=== PATIENT | female | born 1950 | race Caucasian/White ===

== ENCOUNTER → 2017-01-04 12:48 | Outpatient (CLI) | payer MEDICARE, BC | END | disposition home or self-care (01) | LOC: D.MRI 12:00 | DX: M17.12 Unilateral primary osteoarthritis, left knee (principal); M25.562 Pain in left knee ==

== ENCOUNTER 2017-03-18 21:03 | Emergency (ER) | payer MEDICARE, BC ==
[2017-03-18 22:45] LABS: APPEARANCE CLEAR (CLEAR); COLOR YELLOW (YELLOW)
[2017-03-18 22:46] LABS: BILIRUBIN NEGATIVE (NEGATIVE); GLUCOSE NEGATIVE (NEGATIVE); KETONE NEGATIVE (NEGATIVE); PROTEIN NEGATIVE (NEGATIVE); UROBILINOGEN NORMAL (NORMAL)
[2017-03-18 22:52] LABS: WHITE CELLS - URINE 0-5 /hpf (0-5)
[2017-03-18 22:54] LABS: BACTERIA FEW /hpf (NONE SEEN); EPITHELIAL CELLS OCC /hpf (0-5); LEUKOCYTE ESTERASE TRACE (NEGATIVE); NITRITE NEGATIVE (NEGATIVE)
== END 2017-03-18 23:15 | disposition home or self-care (01) ==
LOC: D.ER 21:03
PROVIDERS: Emergency Medicine
DX: N39.0 Urinary tract infection, site not specified (principal)

== ENCOUNTER 2017-06-11 23:26 | Emergency (ER) | payer MEDICARE, BC ==
[2017-06-12 00:38] LABS: BASOPHILS 0.4 % (0-2); EOSINOPHILS 5.2 % (0-7); HEMATOCRIT 35.8 % (36.0-48.0); HEMOGLOBIN 11.2 g/dL (12-16); IMMATURE GRANULOCYTES 0.2 % (0-5); LYMPHOCYTES 13.9 % (15-50); MCH 26.7 pg (26.0-34.0); MCHC 31.3 g/dL (31.0-37.0); MCV 85.2 fL (80.0-100.0); MONOCYTES 6.4 % (2-11); NEUTROPHILS 73.9 % (40-80); PLATELET COUNT 325 10x3/uL (130-400); RDW 15.4 % (11.5-14.5); WBC 8.2 10x3/uL (4.8-10.8)
[2017-06-12 00:42] LABS: CALC OSMOLALITY 275 mosm/kg (275-300); CARBON DIOXIDE 28.9 mmol/L (21.0-32.0); CHLORIDE - SERUM 101 mmol/L (98-107); CREATININE - SERUM 0.7 mg/dL (0.6-1.3); GLUCOSE 113 mg/dL (74-106); POTASSIUM - SERUM 4.4 mmol/L (3.5-5.1); SODIUM 138 mmol/L (136-145); UREA NITROGEN 11 mg/dL (7-18); eGFR NON AFRICAN AMERICAN 88 mL/min (90-120)
== END 2017-06-12 01:17 | disposition home or self-care (01) ==
LOC: D.ER 23:26
PROVIDERS: Family Medicine
DX: T50.905A Adverse effect of unspecified drugs, medicaments and biological substances, initial encounter (principal); Y92.029 Unspecified place in mobile home as the place of occurrence of the external cause; L50.9 Urticaria, unspecified

== ENCOUNTER → 2018-02-12 17:19 | Outpatient (CLI) | payer MEDICARE, BC | END | disposition home or self-care (01) | LOC: D.MAMMO 15:45 | DX: Z12.31 Encounter for screening mammogram for malignant neoplasm of breast (principal) ==

== ENCOUNTER 2019-10-19 13:09 | Inpatient (IN) | payer MEDICARE, BC ==
[~2019-10-19] VITALS: Ht 157.5 cm; Wt 82.6 kg
--- NOTE | 2019-10-19 14:01 | NUR ---
22RFA X2 STICKS PLACED BY STUDENT/INSTRUCTURE
[2019-10-19] MEDS ORDERED: CELEBREX200 MG PO (14:42)
[2019-10-19] MEDS ORDERED: CATAPRES0.1 MG PO (14:43)
[2019-10-19] MEDS ORDERED: ALBUTEROL SULF8.5 GM INH (14:43)
[2019-10-19 14:44] LABS: BASOPHILS 0.6 % (0-2); EOSINOPHILS 8.2 % (0-7); HEMATOCRIT 34.7 % (36.0-48.0); HEMOGLOBIN 10.7 g/dL (12-16); IMMATURE GRANULOCYTES 0.2 % (0-5); MCHC 30.8 g/dL (31.0-37.0); MCV 81.1 fL (80.0-100.0); MEAN PLATELET VOLUME 9.1 fL (7.4-10.4); MONOCYTES 6.5 % (2-11); NEUTROPHILS 74.5 % (40-80); PLATELET COUNT 323 10x3/uL (130-400); RBC 4.28 10x6/uL (4.00-5.40); RDW 15.1 % (11.5-14.5); WBC 8.6 10x3/uL (4.8-10.8)
[2019-10-19] MEDS ORDERED: CIMETIDINE800 MG PO (14:44)
[2019-10-19] MEDS ORDERED: REGLAN10 MG (14:44)
[2019-10-19] MEDS ORDERED: BISOPROLOL FUMAR5 MG PO (14:45)
[2019-10-19] MEDS ORDERED: NEXIUM20 MG PO (14:46)
[2019-10-19 14:56] LABS: INR 0.97 (0.85-1.17); PROTIME 12.9 SECONDS (11.6-15.0)
[2019-10-19 15:06] LABS: CALC OSMOLALITY 272 mosm/kg (275-300); CALCIUM 9.3 mg/dL (8.5-10.1); CARBON DIOXIDE 27.1 mmol/L (21.0-32.0); CHLORIDE - SERUM 101 mmol/L (98-107); CREATININE - SERUM 0.7 mg/dL (0.6-1.3); GLUCOSE 101 mg/dL (74-106); POTASSIUM - SERUM 4.3 mmol/L (3.5-5.1); SODIUM 137 mmol/L (136-145); UREA NITROGEN 9 mg/dL (7-18); eGFR NON AFRICAN AMERICAN 87 mL/min (90-120)
[2019-10-19 15:12] LABS: ALKALINE PHOSPHATASE 104 U/L (30-120); ALT (SGPT) 18 U/L (10-68); BILIRUBIN - TOTAL 0.33 mg/dL (0.2-1.3); PROTEIN - SERUM 6.9 g/dL (6.4-8.2)
[2019-10-19 16:46] VITALS: BP 170/100
[2019-10-19 18:25] LABS: APPEARANCE CLEAR (CLEAR); BILIRUBIN NEGATIVE (NEGATIVE); COLOR YELLOW (YELLOW); GLUCOSE NEGATIVE (NEGATIVE); KETONE NEGATIVE (NEGATIVE); NITRITE NEGATIVE (NEGATIVE); PROTEIN NEGATIVE (NEGATIVE); UROBILINOGEN NORMAL (NORMAL)
[2019-10-19 18:26] LABS: BACTERIA MODERATE /hpf (NEGATIVE); EPITHELIAL CELLS 0-5 /hpf (0-5); RED CELLS - URINE OCC /hpf (0-5)
--- NOTE | 2019-10-19 19:11 | NUR ---
SPOKE WITH NURSE PRACTITINER AND EXPECT NEW ORDERS PT STATES NO NEEDS AT THIS TIME ASSISTED WITH COMFORT AND EXPLAINED A FEW QUESTIONS BED IS LOW AND LOCKED AND CALL LIGHT WITH PT
[2019-10-19 20:07] LABS: APTT 29.3 SECONDS (22.8-39.4)
[2019-10-19 20:08] LABS: D-DIMER-QUANTITATIVE 0.63 ug/mLFEU (0.20-0.54)
[2019-10-19 20:23] VITALS: BP 171/59
[2019-10-19 20:34] LABS: MAGNESIUM - SERUM 1.7 mg/dL (1.8-2.4)
[2019-10-19 22:38] LABS: % SATURATION 9 % (15-55); IRON 40 ug/dl (35-150); TOTAL IRON BIND CAPACITY 443 ug/dl (260-445); UNSAT IRON BIND CAPACITY 403 ug/dl (150-375)
[2019-10-20 00:11] VITALS: BP 152/61
--- NOTE | 2019-10-20 04:21 | NUR ---
I have reviewed this patient and I concur with the Shift Assessment completed by the Licensed Practical Nurse today this shift.
[2019-10-20 05:03] VITALS: BP 144/66
[2019-10-20 05:48] LABS: BASOPHILS 0.5 % (0-2); HEMATOCRIT 33.1 % (36.0-48.0); HEMOGLOBIN 10.3 g/dL (12-16); IMMATURE GRANULOCYTES 0.3 % (0-5); LYMPHOCYTES 12.8 % (15-50); MCH 25.2 pg (26.0-34.0); MCHC 31.1 g/dL (31.0-37.0); MCV 80.9 fL (80.0-100.0); MEAN PLATELET VOLUME 9.3 fL (7.4-10.4); MONOCYTES 7.9 % (2-11); NEUTROPHILS 68.5 % (40-80); PLATELET COUNT 322 10x3/uL (130-400); RBC 4.09 10x6/uL (4.00-5.40); RDW 15.1 % (11.5-14.5)
[2019-10-20 06:00] LABS: ALKALINE PHOSPHATASE 98 U/L (30-120); ALT (SGPT) 15 U/L (10-68); BILIRUBIN - TOTAL 0.26 mg/dL (0.2-1.3); CALC OSMOLALITY 271 mosm/kg (275-300); CARBON DIOXIDE 27.7 mmol/L (21.0-32.0); CHLORIDE - SERUM 101 mmol/L (98-107); CREATININE - SERUM 0.8 mg/dL (0.6-1.3); GLUCOSE 105 mg/dL (74-106); MAGNESIUM - SERUM 1.6 mg/dL (1.8-2.4); PROTEIN - SERUM 6.2 g/dL (6.4-8.2); SODIUM 137 mmol/L (136-145); UREA NITROGEN 7 mg/dL (7-18); eGFR NON AFRICAN AMERICAN 75 mL/min (90-120)
--- NOTE | 2019-10-20 07:29 | NUR ---
PT SITTING ON SIDE ON BED. RECEIVING BREATHING TREATMENT. PT STATES SHE HAS NO FURTHER NEEDS AT THIS TIME. BED LOW. CL IN REACH. WILL CONTINUE WITH POC.
[2019-10-20 08:00] VITALS: BP 185/63
--- NOTE | 2019-10-20 09:29 | NUR ---
PT STATES SHE FEELS NAUSEA AND IS SHAKING BUT STATES SHE DOES NOT KNOW WHY. ASKED PT IF SHE WANTED ZOFRAN AND SHE STATES XOFRAN DOESN'T WORK ADN DR. WEBB GIVES HER PHENEGRAN. I STATED I WOULD GO CALL THE DOCTOR. PT VERBALIZED UNDERSTANDING. PAGED REBEKAH TEMPLE.
--- NOTE | 2019-10-20 09:33 | NUR ---
SPOKE WITH REBEKAH TEMPLE AND SHE STATES TO ORDER 25MG PO OF PHENEGRAN.
[2019-10-20 12:00] VITALS: BP 183/69
--- NOTE | 2019-10-20 13:58 | NUR ---
1190-PER THIS NURSE AND ANTELMO KIDD TOTAL OF 3 STICKS WITH 20 G FOR SALINE LOCK FOR CT. I CALLED [facility] IN RADIOLOGY TO LET HER KNOW THAT PATIENT HAS THE IV IN NOW. LEFT THE 22 G. IN.
--- NOTE | 2019-10-20 14:37 | NUR ---
PT WANTING EXCEDRIN FOR HEADACHE. PAGED REBEKAH TEMPLE.
--- NOTE | 2019-10-20 14:42 | NUR ---
REBEKAH TEMPLE STATES TO ORDER EXCEDRIN.
--- NOTE | 2019-10-20 14:47 | NUR ---
UNABLE TO PULL DOXYCLINCE AT THIS TIME BECAUSE THEY ARE WORKING ON PCU PYXIS.
--- NOTE | 2019-10-20 15:00 | NUR ---
RIGHT FA 20G IV INSERTED IN LEFT FA. CT AWARE THAT IV WAS STARTED.
[2019-10-20 16:00] VITALS: BP 157/73
--- NOTE | 2019-10-20 16:40 | NUR ---
SPOKE WITH SHANTHI FROM PHARMACY AND SHE STATES SHE WILL BRING DOXYCLINCE AND RETIME MED.
--- NOTE | 2019-10-20 16:54 | NUR ---
PT WANTING SOMETHING TO HELP HER SLEEP TONIGHT. PAGED REBEKAH TEMPLE.
--- NOTE | 2019-10-20 16:58 | NUR ---
SPOKE WITH REBEKAH TEMPLE AND SHE STATES TO ORDER MELATONIN 5MG PO QHS. I VERBALIZED UNDERSTANDING.
--- NOTE | 2019-10-20 18:18 | NUR ---
pharmacy still has not brought iv iron.
[2019-10-20 18:35] VITALS: BMI 33.0
--- NOTE | 2019-10-20 19:14 | NUR ---
SITTING UP ON BEDSIDE AND DENIES ANY NEEDS AT THIS TIME BED LOW AND LOCKED AND PT HAS CALL LIGHT
[2019-10-20 20:50] VITALS: BP 176/70
[2019-10-21 00:09] VITALS: BP 128/44
--- NOTE | 2019-10-21 03:31 | NUR ---
I have reviewed this patient and I concur with the Shift Assessment completed by the Licensed Practical Nurse today this shift.
[2019-10-21 06:08] LABS: ALBUMIN 2.7 g/dL (3.4-5.0); ALKALINE PHOSPHATASE 90 U/L (30-120); ALT (SGPT) 16 U/L (10-68); BILIRUBIN - TOTAL 0.26 mg/dL (0.2-1.3); CALC OSMOLALITY 278 mosm/kg (275-300); CALCIUM 8.9 mg/dL (8.5-10.1); CARBON DIOXIDE 27.3 mmol/L (21.0-32.0); CHLORIDE - SERUM 101 mmol/L (98-107); CREATININE - SERUM 0.8 mg/dL (0.6-1.3); GLUCOSE 135 mg/dL (74-106); MAGNESIUM - SERUM 1.6 mg/dL (1.8-2.4); POTASSIUM - SERUM 3.9 mmol/L (3.5-5.1); PROTEIN - SERUM 5.8 g/dL (6.4-8.2); SODIUM 139 mmol/L (136-145); eGFR NON AFRICAN AMERICAN 75 mL/min (90-120)
[2019-10-21 06:11] LABS: UREA NITROGEN 9 mg/dL (7-18)
[2019-10-21 06:24] VITALS: BP 172/80
[2019-10-21 06:49] LABS: BASOPHILS 0.6 % (0-2); EOSINOPHILS 10.7 % (0-7); HEMATOCRIT 32.1 % (36.0-48.0); HEMOGLOBIN 9.7 g/dL (12-16); IMMATURE GRANULOCYTES 0.4 % (0-5); LYMPHOCYTES 12.2 % (15-50); MCH 24.8 pg (26.0-34.0); MCHC 30.2 g/dL (31.0-37.0); MCV 82.1 fL (80.0-100.0); MEAN PLATELET VOLUME 9.5 fL (7.4-10.4); MONOCYTES 9.3 % (2-11); NEUTROPHILS 66.8 % (40-80); PLATELET COUNT 316 10x3/uL (130-400); RBC 3.91 10x6/uL (4.00-5.40); RDW 15.3 % (11.5-14.5); WBC 7.9 10x3/uL (4.8-10.8)
[2019-10-21 09:32] VITALS: BP 139/57
[2019-10-21 13:37] VITALS: BP 188/86
--- NOTE | 2019-10-21 14:54 | NUR ---
PT RESTING COMFORTABLY, SITTING UP TO SIDE OF BED, DENIES ANY NEEDS AT THIS TIME. CALL LIGHT IN REACH, NAD NOTED,W ILL CONTINUE TO MONITOR.
[2019-10-21 16:00] VITALS: BP 176/62
--- NOTE | 2019-10-21 16:04 | NUR ---
PT D/O DIARRHEA, WANTS TO KNOW IF SHE CAN HAVE SOMETHING FOR IT, PAGED REBEKAH HIGGINS APRN, [employer] OPERATOR BACK.
--- NOTE | 2019-10-21 19:37 | NUR ---
INFORMED PT OF NEED FOR STOOL SAMPLE BEFORE SHE CAN GET SOMETHING FOR DIARRHEA, PROVIDED PT WITH COLLECTION CONTAINER.
--- NOTE | 2019-10-21 19:50 | NUR ---
SITTING UP ON SIDE OF BED AWAKE ALERT AND ORIENTED x4 NO SIGNS OR SYMPTOMS OF DISTRESS NOTED. RESPIRATIONS EVEN AND UNLABORED. FAMILY AT BEDSIDE. CALL LIGHT WITH IN REACH AND BED IS IN LOWEST POSITION. WILL CONTINUE TO MONITOR
[2019-10-21 21:33] VITALS: BP 150/68
[2019-10-22] VITALS: BP 188/79
--- NOTE | 2019-10-22 02:46 | NUR ---
PT RESTING IN BED QUEITLY WITH EYES CLOSED. NO SIGNS OR SYMPTOMS OF DISTRESS NOTED. RESPIRATIONS EVEN AND UNLABORED. NO COMPLAINTS OF PAIN AT THIS TIME. IV RIGHT FOREARM SALINE LOCKED. CONTINENT OF BOWELL AND BLADDER. BOWELL SOUNDS ACTIVE x4. LAST BOWELL MOVEMNET 10/21/19. STOOL COLLECTION COLLECTED. IMODIUM GIVEN FOR DIARRHEA. PT TOLERATED WELL. TELEMETREY 102 SINUS TACH. PT ALERT AND ORIENTED x4. CALL LIGHT WITH IN REACH AND BED IS IN LOWEST POSITION. PT ENOURAGED TO CALL FOR HELP WHEN NEEDED. WILL CONTINUE TO MONITOR.
[2019-10-22 04:00] VITALS: BP 167/75
[2019-10-22 05:38] LABS: BASOPHILS 0.4 % (0-2); EOSINOPHILS 10.8 % (0-7); HEMATOCRIT 33.3 % (36.0-48.0); HEMOGLOBIN 10.2 g/dL (12-16); IMMATURE GRANULOCYTES 0.3 % (0-5); MCH 25.1 pg (26.0-34.0); MCHC 30.6 g/dL (31.0-37.0); MCV 81.8 fL (80.0-100.0); MEAN PLATELET VOLUME 9.3 fL (7.4-10.4); MONOCYTES 8.5 % (2-11); PLATELET COUNT 305 10x3/uL (130-400); RBC 4.07 10x6/uL (4.00-5.40); RDW 15.4 % (11.5-14.5); WBC 9.2 10x3/uL (4.8-10.8)
[2019-10-22 06:04] LABS: ALBUMIN 2.7 g/dL (3.4-5.0); ALKALINE PHOSPHATASE 92 U/L (30-120); ALT (SGPT) 13 U/L (10-68); BILIRUBIN - TOTAL 0.33 mg/dL (0.2-1.3); CALC OSMOLALITY 272 mosm/kg (275-300); CARBON DIOXIDE 26.3 mmol/L (21.0-32.0); CHLORIDE - SERUM 99 mmol/L (98-107); CREATININE - SERUM 0.8 mg/dL (0.6-1.3); GLUCOSE 130 mg/dL (74-106); MAGNESIUM - SERUM 1.5 mg/dL (1.8-2.4); POTASSIUM - SERUM 3.5 mmol/L (3.5-5.1); PROTEIN - SERUM 6.4 g/dL (6.4-8.2); SODIUM 136 mmol/L (136-145); UREA NITROGEN 11 mg/dL (7-18); eGFR NON AFRICAN AMERICAN 75 mL/min (90-120)
--- NOTE | 2019-10-22 06:41 | NUR ---
PRN MAGNISSUM GIVEN FOR 1.5 MAG LEVEL. WILL CONTINUE TO MONITOR
[2019-10-22 08:25] LABS: APPEARANCE HAZY (CLEAR); BILIRUBIN NEGATIVE (NEGATIVE); COLOR YELLOW (YELLOW); GLUCOSE NEGATIVE (NEGATIVE); KETONE NEGATIVE (NEGATIVE); NITRITE NEGATIVE (NEGATIVE); PROTEIN NEGATIVE (NEGATIVE); UROBILINOGEN NORMAL (NORMAL)
[2019-10-22 09:09] VITALS: BP 183/66
[2019-10-22 12:34] VITALS: BP 156/60
--- NOTE | 2019-10-22 13:32 | NUR ---
I have reviewed this patient and I concur with the Shift Assessment completed by the Licensed Practical Nurse today this shift.
[2019-10-22 16:45] VITALS: BP 152/77
--- NOTE | 2019-10-22 19:45 | NUR ---
PT SITTING UP ON SIDE OF BED. NO SIGNS OR SYMPTOMS OF DISTRESS NOTED. RESPIRATIONS EVEN AND UNLABORED. CALL LIGHT WITH IN REACH AND BED IS IN THE LOWEST POSITION. WILL CONTINUE TO MONITOR
[2019-10-22 20:00] VITALS: BP 169/70
[2019-10-23] VITALS: BP 149/70
[2019-10-23 04:00] VITALS: BP 168/78
--- NOTE | 2019-10-23 04:06 | NUR ---
PT SITTING UP ON SIDE OF BED NO SIGNS OR SYMPTOMS OF DISTRESS NOTED. RESPIRATIONS EVEN AND UNLABORED. CONTINENT OF BOWELL AND BLADDER. PT STATES LAST BOWELL MOVEMENT WAS 10/22/19. PT COMPLAINS OF FEELING THE URGE TO URINATE. 650CC EMPTIED FROM URINE HAT. BLADDER SCAN PERFORMED. 325CC OF URINE STILL IN BLADDER. WILL CONTINUE TO MONITOR. PT ENCOURAGED TO CALL FOR HELP WHEN GETTING IN AND OUT OF BED. IV LOCATED TO RIGHT AC SALINE LOCKED. CALL LIGHT WITH IN REACH AND BED IS IN LOWEST POSITION. WILL CONTINUE TO MONITOR
--- NOTE | 2019-10-23 05:09 | NUR ---
PRN PAIN MEDICATION GIVEN FOR HEADACHE. PRN NEUSEA MEDICATION GIVEN. CALL LIGHT WITH IN REACH AND BED IS IN LOWEST POSITION. WILLCONTINUE TO MONITOR.
[2019-10-23 06:07] LABS: BASOPHILS 0.2 % (0-2); EOSINOPHILS 0.1 % (0-7); HEMATOCRIT 36.5 % (36.0-48.0); HEMOGLOBIN 11.3 g/dL (12-16); IMMATURE GRANULOCYTES 0.4 % (0-5); LYMPHOCYTES 6.1 % (15-50); MCH 25.1 pg (26.0-34.0); MCV 81.1 fL (80.0-100.0); MEAN PLATELET VOLUME 9.8 fL (7.4-10.4); MONOCYTES 2.2 % (2-11); WBC 10.9 10x3/uL (4.8-10.8)
--- NOTE | 2019-10-23 06:08 | NUR ---
PRN HYDRALAZINE GIVEN FOR 197/95 BLOOD PRESSURE. PT ENCOURAGED TO CALL FOR HELP WHEN NEEDED. CALL LIGHT WITH IN REACH. AND BED IS IN LOWEST POSITON. WILL CONTINUE TO MONITOR.
[2019-10-23 06:16] LABS: PLATELET COUNT 390 10x3/uL (130-400)
[2019-10-23 06:31] LABS: ALBUMIN 3.3 g/dL (3.4-5.0); BILIRUBIN - TOTAL 0.32 mg/dL (0.2-1.3); CALCIUM 9.7 mg/dL (8.5-10.1); CARBON DIOXIDE 24.1 mmol/L (21.0-32.0); CREATININE - SERUM 0.9 mg/dL (0.6-1.3); MAGNESIUM - SERUM 1.6 mg/dL (1.8-2.4); PROTEIN - SERUM 7.8 g/dL (6.4-8.2)
[2019-10-23 06:36] LABS: ANION GAP 16.6 mmol/L (8-16); POTASSIUM - SERUM 4.7 mmol/L (3.5-5.1)
--- NOTE | 2019-10-23 07:34 | NUR ---
REPORT RECEIVED FROM FINISHER SCREWDOWN AND PATIENT CARE ASSUMED. PATIENT LAYING IN BED AWAKE, ALERT AND ORIENTED X 4. PATIENT COMPLAINS OF NAUSEA . PATIENT HAD PHENERGAN EARLIER AND DID NOT HELP. PATIENT BP 202/94. WILL MEDICATE WITH CLONODINE AND RECHECK.
[2019-10-23 10:20] VITALS: BP 195/90
--- NOTE | 2019-10-23 11:13 | NUR ---
PATIENT STABLE AND UNCHANGED. PATIENT HAD STOOL SPECIMEN TURNED IN YESTERDAY AND DID NOT MEET CRITIERIA FOR TESTING. PATIENT HAVING NON PRODUCTIVE COUGH.
[2019-10-23 13:49] VITALS: BP 142/66
--- NOTE | 2019-10-23 14:02 | NUR ---
NO TX DONE PT HAVING ECHO OF HEART
[2019-10-23 14:30] VITALS: Ht 157.5 cm; Wt 82.6 kg
--- NOTE | 2019-10-23 15:10 | NUR ---
PATIENT IS STABLE AND UNCHANGED. PATIENT SITTING UP AT BS VISITNG WITH FAMILY. PATIENT DENIES ANY NEEDS OR PAIN. WILL CONTINUE TO MONITOR.
[2019-10-23 16:26] VITALS: BP 169/74
[2019-10-23] MEDS ORDERED: FLAGYL500 MG PO (16:48)
[2019-10-23] MEDS ORDERED: VIBRAMYCIN 100100 MG PO (16:50)
[2019-10-23] MEDS ORDERED: KLOR-CON 1010 MEQ PO (16:51)
[2019-10-23] MEDS ORDERED: FUROSEMIDE20 MG PO (16:51)
--- NOTE | 2019-10-23 18:20 | NUR ---
PATIENT IS STABLE AND VSS. PATIENT DENIES ANY NEEDS OR PAIN. ORDERS RECEIVED FOR DC. WRITTEN AND VERBAL INSTRUCTIONS GIVEN TO PATIENT.PATIENT SIGNED DC INSTUCTIONS . PATIEN TO FRONT DOOR VIA WC ACCOMAPNIED BY [facility].
--- NOTE | 2019-10-26 11:54 | EC ---
PATIENT:SUSAN LEE DATE OF SERVICE: 10/19/19 SEX: F MEDICAL RECORD: [id number] DATE OF : [birth year] LOCATION:D. D.212 AGE OF PATIENT: 69 ADMISSION DATE: 10/19/19 REFERRING PHYSICIAN: INTERPRETING PHYSICIAN: CHAR HASSAN MD ECHOCARDIOGRAM REPORT ECHO CHARGES 5 ECHO LIMITED Date: 10/23/19 CLINICAL DIAGNOSIS: DYSPNEA ON EXERTION ECHOCARDIOGRAPHIC MEASUREMENTS (adult normal given) AC root (d.<3.7cm) 0 cm LV Septum d (<1.2 cm> 0 cm Valve Excursion 0 cm LV Septum (systole) 0 cm Left Atria (s.<4.0cm> 0 cm LVPW d(<1.2cm) 0 cm RV (d.<2.3cm) 0 cm LVPW (sytole) 0 cm LV diastole(<5.6CM) 0 cm MV E-F(>70mm/sec) 0 cm LV systole 0 cm LVOT Diameter 0 cm MV exc.(>10mm) 0 cm Est.ejection fraction (50-75%) 0 % DOPPLER: LVIT cm/sec A 0 cm/sec E cm/sec LA 0 cm/sec RVSP 32.2 mmHg LVOT 0 cm/sec AOP1/2T m/s Asc. Ao 0 cm/sec RVOT 0 cm/sec RA 0 cm/sec PA 0 cm/sec AV Gradient Peak 0 mmHg AV Mean 0 mmHg AV Area 0 cm MV Gradient Peak 0 mmHg MV Mean 0 mmHg MV Area 0 cm COMMENTS: Promotion Specialist: Tri [facility] Tobacco Sieve Operator: 1 Dr. Hassan TAPE# PACS Pericardial Effusion N DATE OF SERVICE: FINDINGS: 1. Left ventricular chamber size is within normal limits. Left ventricular systolic function is normal. Overall ejection fraction estimated at 55% to 60%. 2. Left atrium, right atrium, and right ventricular chamber sizes are within normal limits. 3. Valvular structures have normal structure and motion. 4. Doppler interrogation only reveals mild mitral regurgitation, no other valvular insufficiency or stenosis. Pulmonary systolic pressure estimated at 32 ECHOCARDIOGRAM REPORT [id number] SUSAN LEE mmHg. 5. No evidence of pericardial effusion or left ventricular thrombus. TRANSINT:[id number] Voice Confirmation ID: [id number] DOCUMENT ID: [id number] CHAR HASSAN MD at 1154 CC: [id number] DICTATION DATE: 10/23/19 1445 COMPUTATIONAL CHEMIST: 10/24/19 0013 DIS IN 10/23/19 [id number] [place] [address]
== END 2019-10-23 18:23 | disposition home or self-care (01) | DRG 177 ==
LOC: D.M2 13:09
PROVIDERS: ADMIT Family Medicine; ATTEND Family Medicine
DX: J69.0 Pneumonitis due to inhalation of food and vomit (principal); I50.31 Acute diastolic (congestive) heart failure; I16.1 Hypertensive emergency; N39.0 Urinary tract infection, site not specified; J45.901 Unspecified asthma with (acute) exacerbation; D50.9 Iron deficiency anemia, unspecified; K21.9 Gastro-esophageal reflux disease without esophagitis; E83.42 Hypomagnesemia; M19.90 Unspecified osteoarthritis, unspecified site; I11.0 Hypertensive heart disease with heart failure

== ENCOUNTER → 2020-02-09 12:59 | Outpatient (CLI) | payer MEDICARE, BC ==
[2019-10-23 14:30] VITALS: BMI 33.3
[~2020-02-09 12:59] MED LIST: ALBUTEROL SULF8.5 GM INH; BISOPROLOL FUMAR5 MG PO; CATAPRES0.1 MG PO; CELEBREX200 MG PO; CIMETIDINE800 MG PO; FLAGYL500 MG PO; FUROSEMIDE20 MG PO; KLOR-CON 1010 MEQ PO; NEXIUM20 MG PO; REGLAN10 MG; VIBRAMYCIN 100100 MG PO
--- NOTE | 2020-02-09 15:10 | NUR ---
PT CONSENTED FOR A LUMBAR MYELOGRAM WITH CT. TIME OUT PERFORMED 1445 BY JD WYLIE(R) AND DR CRUZ
== END | disposition home or self-care (01) ==
LOC: D.CT 02-08 13:30 → D.RAD 13:30
PROVIDERS: ATTEND Family Medicine
DX: M54.17 Radiculopathy, lumbosacral region (principal)

== ENCOUNTER 2020-02-21 07:18 | Emergency (ER) | payer MEDICARE, BC ==
[~2020-02-21] VITALS: Ht 157.5 cm; Wt 82.7 kg
[2020-02-21 07:27] VITALS: Ht 157.5 cm; Wt 82.7 kg
[2020-02-21] MEDS ORDERED: CATAPRES0.2 MG PO (07:31)
[2020-02-21] MEDS ORDERED: PREMARIN1.25 MG PO (07:31)
[2020-02-21] MEDS ORDERED: SINGULAIR10 MG PO (07:32)
[2020-02-21] MEDS ORDERED: VITAMIN D3 (07:32)
[2020-02-21] MEDS ORDERED: CLARITIN 10 MG10 MG PO (07:33)
[2020-02-21] MEDS ORDERED: VENTOLIN HFA [SP8 GM (07:34)
[2020-02-21] MEDS ORDERED: SYMBICORT 16010.2 GM (07:34)
[2020-02-21] MEDS ORDERED: ATROVENT 0.02%2.5 ML (07:34)
[2020-02-21] MEDS ORDERED: LEVOFLOXACIN500 MG (07:35)
[2020-02-21] MEDS ORDERED: IPRATROPIUM BRO30 M1 (07:35)
[2020-02-21] MEDS ORDERED: [UNRECOGNIZED DRUG - OTHER] (07:36)
[2020-02-21 07:40] LABS: HEMATOCRIT 38.5 % (36.0-48.0); HEMOGLOBIN 11.5 g/dL (12-16); LYMPHOCYTES 10.1 % (15-50); MCHC 29.9 g/dL (31.0-37.0); MCV 83.7 fL (80.0-100.0); MEAN PLATELET VOLUME 9.1 fL (7.4-10.4); NEUTROPHILS 82.9 % (40-80); PLATELET COUNT 332 10x3/uL (130-400); RDW 13.6 % (11.5-14.5); WBC 8.9 10x3/uL (4.8-10.8)
[2020-02-21] MEDS ORDERED: [UNRECOGNIZED DRUG - OTHER] (07:41)
[2020-02-21] MEDS ORDERED: LASIX (07:41)
[2020-02-21 07:45] LABS: APTT 29.4 SECONDS (22.8-39.4); CALC OSMOLALITY 270 mosm/kg (275-300); CALCIUM 9.3 mg/dL (8.5-10.1); CARBON DIOXIDE 27.7 mmol/L (21.0-32.0); CHLORIDE - SERUM 99 mmol/L (98-107); CREATININE - SERUM 0.9 mg/dL (0.6-1.3); GLUCOSE 120 mg/dL (74-106); INR 0.97 (0.85-1.17); POTASSIUM - SERUM 4.2 mmol/L (3.5-5.1); PROTIME 12.8 SECONDS (11.6-15.0); SODIUM 135 mmol/L (136-145); UREA NITROGEN 13 mg/dL (7-18); eGFR NON AFRICAN AMERICAN 65 mL/min (90-120)
[2020-02-21 08:01] LABS: ALKALINE PHOSPHATASE 98 U/L (30-120); ALT (SGPT) 15 U/L (10-68); BILIRUBIN - TOTAL 0.18 mg/dL (0.2-1.3); CKMB 0.9 U/L (0.0-3.6); CREATINE KINASE 42 UL (21-215); PRO BNP 631 pg/mL (0-125); PROTEIN - SERUM 6.8 g/dL (6.4-8.2); TROPONIN-I < 0.017 ng/mL (0.000-0.060)
[2020-02-21] MEDS ORDERED: K-DUR20 MEQ PO (09:07)
[2020-02-21] MEDS ORDERED: LASIX40 MG PO (09:07)
[2020-02-21] MEDS ORDERED: NORVASC5 MG PO (09:07)
[2020-02-21 09:21] LABS: BILIRUBIN NEGATIVE (NEGATIVE); GLUCOSE NEGATIVE (NEGATIVE); KETONE NEGATIVE (NEGATIVE); NITRITE NEGATIVE (NEGATIVE); SPECIFIC GRAVITY 1.005 (1.005-1.020); UROBILINOGEN NORMAL (NORMAL)
[2020-02-21 10:14] VITALS: BP 166/55
== END 2020-02-21 09:58 | disposition home or self-care (01) ==
LOC: D.ER 07:18
PROVIDERS: Emergency Medicine
DX: I10 Essential (primary) hypertension (principal); I51.7 Cardiomegaly; I87.309 Chronic venous hypertension (idiopathic) without complications of unspecified lower extremity; K21.9 Gastro-esophageal reflux disease without esophagitis; J45.909 Unspecified asthma, uncomplicated

== ENCOUNTER → 2020-04-26 09:30 | Outpatient (CLI) | payer MEDICARE, BC ==
[2020-02-21 07:27] VITALS: BMI 33.3
[~2020-04-26 09:30] MED LIST changes: +ATROVENT 0.02%2.5 ML; +CATAPRES0.2 MG PO; +CLARITIN 10 MG10 MG PO; +IPRATROPIUM BRO30 M1; +K-DUR20 MEQ PO; +LASIX; +LASIX40 MG PO; +LEVOFLOXACIN500 MG; +NORVASC5 MG PO; +PREMARIN1.25 MG PO; +SINGULAIR10 MG PO; +SYMBICORT 16010.2 GM; +VENTOLIN HFA [SP8 GM; +VITAMIN D3; +[UNRECOGNIZED DRUG - OTHER]; +[UNRECOGNIZED DRUG - OTHER]
== END | disposition home or self-care (01) ==
LOC: D.HCCARDIO 09:30
PROVIDERS: ATTEND Internal Medicine Cardiovascular Disease
DX: R06.00 Dyspnea, unspecified (principal)

== ENCOUNTER 2020-05-11 11:30 | Day surgery (SDC) | payer MEDICARE, BC ==
[~2020-05-11] VITALS: Ht 157.5 cm; Wt 85.0 kg
--- NOTE | ~2020-05-11 | HEMODYNAMI ---
PATIENT:SUSAN LEE MEDICAL RECORD: [id number] : 46 LOCATION:[facility] ADMISSION DATE: 05/11/20 Generatedon:05/11/202014:21 Patient name: SUSAN LEE Patient #: [id number] : 1950 Date of study: 05/11/2020 Page: Of Hemodynamic Procedure Report Patient Data Patient Demographics Procedure consent was obtained First Name: SUSAN Gender: Female Last Name: ROSA : 1950 Middle Initial: S Age: 70 year(s) Patient #: [id number] Race: SSN: [id number] Additional ID: [id number] Contact details Address: [address] [place] [address] State: [place] City: [place] Zip code: [address] Past Medical History Allergies Allergen Reaction Date Comments Reported Other allergy 05/11/2020 AVELOX, BACTRIM, BENZOCAINE, BIAXIN, CODEINE, KEFLEX, LATEX, PCN Admission Admission Data Admission Date: 05/11/2020 Admission Time: 11:30 Arrival Date: 05/11/2020 Arrival Time: 13:30 Admit Source: Other Insurance Payor: Medicare HIC #: [id number] Height (in.): 61.81 BSA: 1.86 (m2) Height (cm.): 157 BMI: 34.48 (kg/m2) Weight (lbs.): 187.39 Weight (kg.): 85 Lab Results Lab Result Date: 05/11/2020 Lab Result Time: 0:00 Biochemistry Name Units Result Min Max BUN mg/dl 17 --(---*)-- 7 18 Creatinine mg/dl 0.9 --(-*--)-- 0.6 1.3 eGFR ml/min 64.76499 *-(----)-- 90 120 NONAFRICAN CBC Name Units Result Min Max Hematocrit % 38.5 *-(----)-- 42 54 Hemoglobin g/dl 12.2 *-(----)-- 13.5 17.5 Procedure Procedure Types Cath Procedure Diagnostic Procedure [facility] w/Coronaries Sedation Charges Moderate Sedation up to 15 minutes PCI Procedure Coronary Stent Coronary Stent Initial Hemochron ACT Test Procedure Description Procedure Date Procedure Date: 05/11/2020 Procedure Start Time: 13:49 Procedure End Time: 14:13 Procedure Staff Name Function Mellissa Combs RT Scrub Wade Rincon MD Performing Physician Erick Qiu RN Nurse Julisa Booth RT Monitor Procedure Data Cath Procedure Fluoroscopy Diagnostic fluoroscopy Total fluoroscopy Time: 4.9 time: 4.9 min min Diagnostic fluoroscopy Total fluoroscopy dose: dose: 1001 mGy 1001 mGy Contrast Material Contrast Material Type Amount (ml) Isovue 300 117 Entry Location Entry Primary Successful Side Size Upsize Upsize Entry Closure Hauser ccessful Closure Location (Fr) 1 (Fr) 2 (Fr) Remarks Device Remarks Radial Right 6 Fr Mechanical artery Short Compression Estimated blood loss: 10 ml Procedure Complications No complications Procedure Medications Medication Administration Route Dosage 0.9% NaCl I.V. 100 ml/hr Oxygen etCO2 Nasal cannula 2 l/min Heparin Flush Bag added to field 2 bags (1000units/500ml NS) Lidocaine 2% added to field 20 Radial Cocktail added to field 1 syringe (Verapamil 2mg/Nitro 400mcg/Heparin 1500units) Versed I.V. 2 mg Radial Cocktail I.A. 1 syringe (Verapamil 2mg/Nitro 400mcg/Heparin 1500units) Versed I.V. 1 mg Heparin Bolus I.V. 8000 units Plavix P.O. 600 mg Fentanyl I.V. 100 mcg Hemodynamics Rest BSA: 1.86 (m2) HGB: 12.2 (g/dl) O2 Consumption: Estimated: 171.94 (ml/min) O2 Co nsumption indexed: Estimated:92.44 (ml/min/m) Heart Rate: 72 (bpm) Pressure Samples Time Site Value (mmHg) Purpose Heart Use Rate(bpm) 13:52 LV 144/3,14 Snapshot 70 13:52 LV 143/-2,10 Pullback 68 13:52 AO 124/51(82) Pullback 68 Gradients Valve Time Site 1 Site 2 Mean SEP/DFP Peak To Heart Use (mmHg) (sec/min) Peak Rate (mmHg) (bpm) Aortic 13:52 LV AO 10 19 19 68 143/-2,10 124/51(82) Calculations Valve P-P Mean Valve Index Valve Source Name Gradient Area Flow (cm2) Aortic 19 19 10 Snapshots Pre Cath Intra NCS Post Cath Vital Signs Time Heart Resp SPO2 etCO2 NIBP (mmHg) Rhythm Pain Sedation Rate (ipm) (%) (mmHg) Status Level (bpm) 13:39:00 71 21 100 33.8 178/76(128) NSR 0 (11) 10(A) , No pain 13:43:31 68 15 99 33.8 162/62(124) NSR 0 (11) 10(A) , No pain 13:47:59 70 13 98 20.3 158/56(94) NSR 0 (11) 10(A) , No pain 13:52:21 76 14 96 16.5 108/35(100) NSR 0 (11) 10(A) , No pain 13:57:32 72 13 96 24.7 125/43(81) NSR 0 (11) 10(A) , No pain 14:02:44 83 15 94 30 138/64(104) NSR 0 (11) 10(A) , No pain 14:07:51 85 23 98 15.7 190/115(151) NSR 0 (11) 10(A) , No pain 14:12:13 24.8 No Cuff NSR 0 (11) 10(A) , No pain Medications Time Medication Route Dose Verified Delivered Reason Not es Effectiveness by by 13:37:10 0.9% NaCl I.V. 100 Erick Erick Per physician ml/hr Lazarus Qiu RN RN 13:37:19 Oxygen etCO2 2 l/min Erick Erick for low 02 sats Nasal Lorigan Lorjoe cannula RN RN 13:37:30 Heparin Flush added 2 bags Erick Erick used for Bag to Lorigan Lazarus procedure (1000units/500ml field MORILLO RN NS) 13:37:38 Lidocaine 2% added 20ml Erick Erick for local to vial Lorigan Lorigan anesthetic field MORILLO RN 13:37:54 Radial Cocktail added 1 Erick Erick used for (Verapamil to syringe Lorigan Lorigan procedure 2mg/Nitro field MORILLO RN 400mcg/Hepari 13:44:16 Versed I.V. 2 mg Erick Erick for sedation Lazarus Qiu RN RN 13:51:42 Radial Cocktail I.A. 1 Erick Wade for (Verapamil syringe Lazarus Rincon MD vasodilation 2mg/Nitro RN 400mcg/Hepari 13:52:04 Versed I.V. 1 mg Erick Erick for sedation Lazarus Qiu RN RN 13:59:12 Heparin Bolus I.V. 8,000 Erick Erick for units Lazarus Qiu anticoagulation RN RN 14:09:10 Plavix P.O. 600 mg Erick Erick for Lazarus Qiu antiplatelet RN RN therapy 14:20:14 Fentanyl I.V. 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 12:54:01 Time tracking: Regular hours (M-F 7:00 - 5:00) 12:54:07 Plan of Care:Hemodynamics will remain stable., Cardiac rhythm will remain stable., Comfort level will be maintained., Respiratory function will remain adequate., Patient/ family verbilizes understanding of procedure., Procedure tolerated without complication., Recovers from procedure without complications.. 13:03:52 H&P Date Dictated: 05/06/2020 Within 30 days and on chart., H&P Addendum completed by physician on day of procedure. (MUST COMPLETE FOR ALL OUTPATIENTS). 13:04:50 Patient allergic to Other allergyAVELOX, BACTRIM, BENZOCAINE, BIAXIN, CODEINE, KEFLEX, LATEX, PCN 13:17:19 Erick Qiu RN sent for patient. Start room use. 13:21:43 Lab Result : Hemoglobin 12.2 g/dl 13:21:43 Lab Result : Hematocrit 38.5 % 13:21:43 Lab Result : eGFR NONAFRICAN 64.92927 ml/min 13:21:43 Lab Result : BUN 17 mg/dl 13:21:43 Lab Result : Creatinine 0.9 mg/dl 13:37:10 0.9% NaCl 100 ml/hr I.V. was administered by Erick Qiu RN; Per physician; Verbal order read back and verified. 13:37:19 Oxygen 2 l/min etCO2 Nasal cannula was administered by Erick Qiu RN; for low 02 sats; Verbal order read back and verified. 13:37:30 Heparin Flush Bag (1000units/500ml NS) 2 bags added to field was administered by Erick Qiu RN; used for procedure; Verbal order read back and verified. 13:37:38 Lidocaine 2% 20ml vial added to field was administered by Erick Qiu RN; for local anesthetic; Verbal order read back and verified. 13:37:43 Vital chart was started 13:37:54 Radial Cocktail (Verapamil 2mg/Nitro 400mcg/Heparin 1500units) 1 syringe added to field was administered by Erick Qiu RN; used for procedure; Verbal order read back and verified. 13:39:18 Patient received from Pre/Post Procedure Room to CCL 2 Alert and oriented. Tansferred to table in Supine position. 13:39:19 Warm blankets applied, and kelton hugger turned on for patient comfort. 13:39:20 ECG and BP/O2 sat monitors applied to patient. 13:39:20 Correct patient and procedure confirmed by team. 13:39:21 Baseline sample Acquired. 13:39:23 Rhythm: sinus rhythm 13:39:24 Full Disclosure recording started 13:39:25 Pre-op teaching completed and patient verbalized understanding. 13:39:25 Pre-procedure instructions explained to patient. 13:39:27 Family in patients room. 13:39:28 Patient NPO since Midnight. 13:39:29 Is the patient allergic to Iodine/contrast media? Yes. 13:39:30 Was the patient premedicated? Yes 13:39:31 Is patient on blood thinner?No 13:39:33 Patient diabetic? No. 13:39:35 Previous problem with sedation/anesthesia? No ? 13:39:36 Snore? Yes 13:39:37 Sleep apnea? Yes 13:39:38 Deviated septum? No 13:39:39 Opens mouth fully? Yes 13:39:40 Sticks out tongue? Yes 13:39:45 Airway obstruction? Yes ASTHMA 13:39:48 Dentures? No ? 13:39:53 Modified True's test Ulnar < 7 seconds 13:39:55 Patient pain scale 0/10 ?. 13:40:01 IV patent on arrival in right forearm with 0.9% NaCl at O. 13:40:05 Lab results completed and on chart. 13:40:09 Right Radial & Right Groin area was prepped with chlora-prep and draped in sterile fashion 13:40:10 Alarms reviewed by R. N. 13:40:11 Sharps counted by scrub and verified by R.N. 13:43:56 Final Timeout: patient, procedure, and site verified with staff and physician. All members of the team are in agreement. 13:43:56 --------ALL STOP TIME OUT------ 13:43:58 Right Radial & Right Groin site verified by team. 13:44:02 Fire Safety Assessment: A--An alcohol-based skin anteseptic being used preoperatively., C--Open oxygen or nitrous oxide is being used., D--An ESU, laser, or fiber-optic light is being used. 13:44:05 Physical assessment completed. ASA score P 2 - A patient with mild systemic disease as per Wade Rincon MD. 13:44:08 2) 60-89 Mildly reduced kidney function, and other findings (as for stage 1) point to kidney disease. 13:44:11 Maximum allowable contrast dose (3.7 X eGFR X 0.75)180 ml. 13:44:15 Sedation plan: IV Moderate Sedation Medication:Versed, Fentanyl 13:44:16 Versed 2 mg I.V. was administered by Erick Qiu RN; for sedation; Verbal order read back and verified. 13:47:28 Procedure started. 13:47:43 Use device set Radial Dx or PCI 13:47:51 ACIST Syringe (52285) opened to sterile field. 13:47:52 ACIST Hand Control (00718) opened to sterile field. 13:47:52 Bag Decanter (2001S) opened to sterile field. 13:47:53 ACIST Manifold (90729) opened to sterile field. 13:47:54 Tegaderm 4 x 4 (1626W) opened to sterile field. 13:48:02 Medline Cath Pack ([id number]) opened to sterile field. 13:48:04 MBrace Wrist Support (980084495) opened to sterile field. 13:48:05 NEEDLE Cook 21G 4cm Radial (A83466) opened to sterile field. 13:48:06 SHEATH 6FR RAIN (3380033) opened to sterile field. 13:48:06 EMERALD Guide Wire (502-280) opened to sterile field. 13:49:19 Local anesthetic to right radial artery with Lidocaine 2% by Wade Rincon MD.INITIAL ACCESS ONLY 13:50:57 A 6 Fr Short sheath was inserted into the Right Radial artery 13:51:32 LV gram done using CHAUDHARY 13:51:35 Injector settings: Ml/sec: 5, Volume: 15, 13:51:42 Radial Cocktail (Verapamil 2mg/Nitro 400mcg/Heparin 1500units) 1 syringe I.A. was administered by Wade Rincon MD; for vasodilation; Verbal order read back and verified. 13:52:04 Versed 1 mg I.V. was administered by Erick Qiu RN; for sedation; Verbal order read back and verified. 13:52:09 LV hemodynamics recorded. 13:52:27 EF : 60 % 13:53:50 LCA angiography performed. 13:55:04 RCA angiography performed. 13:55:07 ACCDominant side:Left 13:55:09 Catheter exchanged over wire. 13:55:24 Proceeding to intervention. 13:55:58 TUBING High Pressure Extension Tubing (Sergey) ([id number]) opened to sterile field. 13:55:59 BMW 300cm Straight [place] 2 wire (5306084) opened to sterile field. 13:55:59 INFLATOR Merit BasixCompak (YB9687) opened to sterile field. 13:56:04 GUIDE 6FR XBLAD 3.5 catheter ([id number]) opened to sterile field. 13:56:46 Pre PCI Site: [place] LAD has 80% stenosis. 13:56:52 ACC Pre-intervention DAYSI Flow is 3. 13:58:49 6 Fr XBLAD 3.5 guide catheter was inserted over the wire 13:59:12 Heparin Bolus 8,000 units I.V. was administered by Erick Qiu RN; for anticoagulation; Verbal order read back and verified. 13:59:45 BMW 300 wire advanced. 14:02:36 Wire advanced across lesion. 14:05:04 Place stent Inflation Number: 1 A IAIN OTW 3.0 x 22 stent ([id number]) was prepped and advanced across the Prox LAD . The stent was deployed at 12 FELICITA for 0:00 (min:sec) . 14:05:30 Stent catheter was removed intact over wire. 14:05:31 Guide catheter removed. 14:05:31 Wire removed. 14:06:40 ZEPHYR REGULAR TR BAND (709574) opened to sterile field. 14:06:51 Sheath removed intact; hemostasis achieved with Mechanical Compression to the Right Radial artery. 14:06:55 Procedure ended.(Physican Out) 14:07:45 Fluoroscopy time 04.90 minutes. 14:07:51 Fluoroscopy dose: 1001 mGy 14:07:51 Flurop Dose total: 1001 14:07:57 Dose Area Product 93090 mGy/cm. 14:08:01 Contrast amount:Isovue 300 117ml. 14:08:04 Maximum allowable dose exceeded? No. 14:08:05 Sharps counted by scrub and verified by R.N. 14:08:08 [place] band inflated with 13cc of air. 14:08:11 Post-procedure physical assessment completed. ASA score P 2 - A patient with mild systemic disease as per Wade Rincon MD. 14:08:13 Post procedure rhythm: sinus rhythm 14:08:16 Estimated blood loss: 10 ml 14:08:17 Post procedure instruction explained to patient.Patient verbalizes understanding. 14:08:18 Patient needs reinforcement of post procedure teaching. 14:08:51 Procedure type changed to Cath procedure, Diagnostic procedure, LHC, C w/Coronaries, Sedation Charges, Moderate Sedation up to 15 minutes, PCI procedure, Coronary Stent, Coronary Stent Initial, Hemochron ACT Test 14:09:10 Plavix 600 mg P.O. was administered by Erick Qiu RN; for antiplatelet therapy; Verbal order read back and verified. 14:09:36 Procedure and supply charges have been captured, reviewed, submitted and are correct. 14:09:38 Procedure Complication : No complications 14:09:[address] [facility] Findings: MVD- PCI performed (see procedure note) 14:11:21 Vital chart was stopped 14:11:23 See physician's report for complete and final results. 14:11:23 Operative report dictated upon procedure completion. 14:11:31 Report given to [facility]. 14:11:35 Patient transfered to [facility] with Bed. 14:11:40 ACC-PCI Only Patient was given prescriptions, or instructed by Wade Rincon MD to start/continue the following medications upon discharge: Plavix 14:12:55 ACT drawn and resulted at ( High) out of range seconds. (normal therapeutic range 180-240 seconds). 14:13: Full Disclosure recording stopped 14:13: Procedure ended. 14:13:28 End room use (Document Last) 14:13:43 End room use (Document Last) 14:14:16 End room use (Document Last) 14:20:14 Fentanyl 100 mcg I.V. was administered by Erick Qiu RN; for chest pain; Verbal order read back and verified. Intervention Summary Intervention Notes Time ActionType Lesion and Equipment Action# Pressure Duration Attributes Used 14:05:[address] Place stent Prox LAD IAIN OTW 3.0 1 12 00:00 x 22 stent ([id number]) Device Usage Item Name Manufacture Quantity Catalog Hospital Part Current Mini mal Lot# / Number Charge Number Stock Stock Serial# Code ACIST Syringe Acist 1 03287 283370 149701 992239 20 (81050) Medical Systems Inc Bag Decanter Microtek 1 2001S 362070 00660 581903 5 (2001S) Medical Inc. ACIST Hand Acist 1 80285 217189 021521 652919 5 Control Medical (73995) Systems Inc ACIST Acist 1 64979 118955 982161 486408 5 Manifold Medical (83623) Systems Inc Tegaderm 4 x 3M 1 1626W 728654 681909 379966 5 4 (1626W) Medline Cath Medline 1 [id number] 180529 02069 882696 5 Pack ([id number]) MBrace Wrist Advanced 1 140-0250-00 076246 21640 972357 5 Support Vascular (301311923) Dynamics NEEDLE drchrono Medical 1 T86754 577238 036789 208554 5 21G 4cm Radial (P73454) EMERALD Guide Cardinal 1 502-455 275221 595706 308008 5 Wire Health (502-703) SHEATH 6FR Cardinal 1 2928594 650402 2635182 068964 5 RAIN Health (9980331) TUBING High Merit 1 [id number] 933165 51752 714840 10 Pressure Medical Extension Tubing (Rincon) (WE4119A) INFLATOR Merit 1 KU4813 460052 974966 318087 15 Merit Medical BasixCompak (AG9941) BMW 300cm Devi 1 8963039 809310 265891 866876 5 Straight Vascular [place] 2 wire (1661375) GUIDE 6FR Cardinal 1 82427118 014340 409739 323470 10 XBLAD 3.5 Health catheter (41103859) IAIN OTW 3.0 Medtronic 1 [id number] 248024 8390598 629708 5 [id number] x 22 stent ([id number]) ZEPHYR Cardinal 1 735430 447360 4212935 818403 5 REGULAR TR Health BAND (476856) Signature Audit [place] Stage Time Signature Unsigned Intra-Procedure 05/11/2020 Julisa Booth 2:13:43 PM RT(R) Intra-Procedure 05/11/2020 Erick 2:14:16 PM Lazarus MORILLO Intra-Procedure 05/11/2020 Wade Rincon MD 2:15:01 PM 05/11/2020 2:18:18 PM Intra-Procedure 05/11/2020 Wade Rincon MD 2:21:29 PM Signatures Performing Physician : Signature : Wade Rincon MD Date : Time : Nurse : Erick Qiu Signature : RN Date : Time : Monitor : Julisa Booth Signature : RT Date : Time : [place] [address] [place] [address]
[2020-05-11] MEDS ORDERED: BISOPROLOL FUMAR5 MG PO (12:07)
[2020-05-11] MEDS ORDERED: ENTRESTO 24 MG1 EACH PO (12:07)
[2020-05-11 12:17] VITALS: BP 194/84; Ht 157.5 cm; Wt 85.0 kg
[2020-05-11 12:38] LABS: BASOPHILS 0 % (0-2); EOSINOPHILS 0 % (0-7); HEMATOCRIT 38.5 % (36.0-48.0); HEMOGLOBIN 12.2 g/dL (12-16); IMMATURE GRANULOCYTES 0.2 % (0-5); LYMPHOCYTES 5.6 % (15-50); MCH 26.1 pg (26.0-34.0); MCHC 31.7 g/dL (31.0-37.0); MCV 82.4 fL (80.0-100.0); MEAN PLATELET VOLUME 9.3 fL (7.4-10.4); MONOCYTES 2.4 % (2-11); NEUTROPHILS 91.8 % (40-80); PLATELET COUNT 333 10x3/uL (130-400); RBC 4.67 10x6/uL (4.00-5.40); RDW 15.4 % (11.5-14.5); WBC 10.1 10x3/uL (4.8-10.8)
[2020-05-11 12:49] LABS: ANION GAP 13.7 mmol/L (8-16); CALCIUM 9.2 mg/dL (8.5-10.1); CARBON DIOXIDE 26.2 mmol/L (21.0-32.0); CHOL - HDL RATIO 3.7 ratio (2.3-4.1); CREATININE - SERUM 0.9 mg/dL (0.6-1.3); LDL-HDL RATIO 2.3 ratio (1.5-3.5); POTASSIUM - SERUM 3.9 mmol/L (3.5-5.1)
[2020-05-11] MEDS ORDERED: PLAVIX75 MG PO (14:37)
[2020-05-11] MEDS ORDERED: BAYER CHEWABLE81 MG PO (14:37)
--- NOTE | 2020-05-11 14:38 | NUR ---
PT RECEIVED VIA STRETCHER FROM PATRON ATTENDANT FOR RECOVERY. PT SITTING ON BEDPAN TRYING TO VOID, STATES SHE HAS URGENCY PROBLEMS DUE TO HAVING A BLADDER SLING REPAIR. PT DENIES CHEST PAIN OR DISCOMFORT AT THIS TIME. ZYPHER BAND AND IMMOBILZIER TO R WRIST/ARM, ARM PINK AND WARM, CAP REFILL BRISK. NO S/S HEMATOMA OR BLEEDING. PT INSTRUCTED NOT TO USE ARM, SHE VERBALIZED UNDERSTANDING. IV PATENT INFUSING VIA ORDERS. PT PLACED ON CARDIAC MONITORS AND O2 VIA NC AT 2L. HR NSR RTE 72, BP 184/73, RR 14, SAT 97. PT REMOVED FROM BEDPAN, VOIDED ABOUT 75 CC CLEAR YELLOW URINE. ADULT DEPEND PLACED ON PT PER REQUEST. CALL LIGHT IN REACH, AT BS
--- NOTE | 2020-05-11 15:00 | NUR ---
PT RESTING COMFORTABLY, DENIES PAIN OR DISCOMFORT. SIPS OF SPRITE GIVEN. VSS AT PRESENT. CALL LIGHT IN REACH. ZBAND AND IMMOBILIZER IN PLACE, NO S/S HEMATOMA OR BLEEDING NOTED.
--- NOTE | 2020-05-11 15:41 | NUR ---
PT RESTING W/O COMPLAINTS. ZBAND AND IMMOBILIZER IN PLACE, NO S/S HEMATOMA. CRACKERS AND SPRITE GIVEN PER REQUEST. CALL LIGHT IN REACH, REMAINS AT BS
--- NOTE | 2020-05-11 15:50 | NUR ---
COMES TO NURSES STATION STATES 'S WRIST IS BLEEDING. ACTIVE BLEEDING NOTED FROM PUNCTURE SITE. MANUAL PRESSURE HELD X 4 MINUTES, STILL BLEEDING SO MANUAL PRESSURE HELD AGAIN AND THEM ZBAND REPLACED WITH 12 CC AIR. BLEEDING THEN BEGAN TO SLOW AND THEN STOPPED. PILLOW PLACED UNDER ARM FOR ELEVATION AND IMMOBILIZER RE POSITIONED, WILL CONTINUE TO WATCH. VSS THOUGH OUT INTERVENTION.
--- NOTE | 2020-05-11 16:15 | NUR ---
PT VOIDED SMALL AMOUNT IN BEDPAN, BED SOAKED FROM DEPEND. PT CLEANED UP AND BED LINEN CHANGED. PUREWICK PLACED TO SUCTION. PT REPOSITIONED IN BED FOR COMFORT. VSS. ZBAND IN PLACE, NO BLEEDING OR S/S HEMATOMA NOTED. CALL LIGHT IN REACH
--- NOTE | 2020-05-11 16:48 | NUR ---
NO BLEEDING NOTED FROM Z BAND. URINE DRAINING VIA PUREWICK. PT DENIES PAIN OR NEEDS AT THIS TIME.
--- NOTE | 2020-05-11 17:02 | NUR ---
3 cc AIR REMOVED FROM Z BAND, NO BLEEDING OR S/S HEMATOMA NOTED. VSS. PT DENIES NEEDS AT THIS TIME. CALL LIGHT IN REACH, AT BS
--- NOTE | 2020-05-11 17:21 | NUR ---
3 ADD'L CC AIR REMOVED FROM Z BAND, NO BLEEDING NOTED. 500 CC CLEAR YELLOW URINE VIA PUREWICK IN CANISTER.
--- NOTE | 2020-05-11 17:36 | NUR ---
DISCHARGE INSTRUCTIONS REVIEWED W PT AND , STRESSED IMPORTANCE OF GETTING [employer] PRESCRIPTION FILLED AND STARTING IT TOMORROW. THEY BOTH VERBALIZED UNDERSTANDING. ALL AIR BUT 1CC REMOVED FROM Z BAND, NO BLEEDING OR S/S HEMATOMA NOTED. O2 REMOVED.
--- NOTE | 2020-05-11 17:49 | NUR ---
IV REMOVED W CATH INTACT. MONITORS REMOVED, ZBAND AND IMMOBILIZER REMAIN IN PLACE, PT UP TO DRESS FOR DISCHARGE
--- NOTE | 2020-05-11 18:01 | NUR ---
ZBAND AND REMAINING AIR REMOVED NO BLEEDING OR HEMATOMA NOTED. 2X2 AND SM TEGADERM DRESSING APPLIED, IMMOBILIZER RE POSITIONED. PT THEN DISCHARGED VIA WC TO WAITING IN PRIVATE VEHICLE. PT HAD ALL BELONGINGS AND DISCHARGE PAPERWORK
== END 2020-05-11 18:00 | disposition home or self-care (01) ==
LOC: D.CATH 11:30
PROVIDERS: ATTEND Internal Medicine Cardiovascular Disease
DX: I20.9 Angina pectoris, unspecified (principal); R94.39 Abnormal result of other cardiovascular function study; I10 Essential (primary) hypertension; R06.00 Dyspnea, unspecified; Z88.8 Allergy status to other drugs, medicaments and biological substances; Z82.49 Family history of ischemic heart disease and other diseases of the circulatory system; I45.10 Unspecified right bundle-branch block
CPT/HCPCS: 93458; C9600

== ENCOUNTER 2020-05-19 07:26 | Day surgery (SDC) | payer MEDICARE, BC ==
[~2020-05-19] VITALS: Ht 157.5 cm; Wt 85.6 kg
--- NOTE | ~2020-05-19 | HEMODYNAMI ---
PATIENT:SUSAN LEE MEDICAL RECORD: [id number] : 46 LOCATION:[facility] ADMISSION DATE: 05/19/20 Generatedon:05/19/202010:22 Patient name: SUSAN LEE Patient #: [id number] : 1950 Date of study: 05/19/2020 Page: Of Hemodynamic Procedure Report Patient Data Patient Demographics Procedure consent was obtained First Name: SUSAN Gender: Female Last Name: ROSA : 1950 Middle Initial: S Age: 70 year(s) Patient #: [id number] Race: SSN: [id number] Additional ID: [id number] Contact details [address]: [address] [place] [address] State: [place] City: [place] Zip code: [address] Past Medical History Allergies Allergen Reaction Date Comments Reported Other allergy 05/11/2020 AVELOX, BACTRIM, BENZOCAINE, BIAXIN, CODEINE, KEFLEX, LATEX, PCN Other allergy 05/19/2020 aVELOX, bACTRIM, bENZOCAINE, bIAXIN, CODEINE, DEFLEX, LATEX, PCN Admission Admission Data Admission Date: 05/19/2020 Admission Time: 7:26 Arrival Date: 05/19/2020 Arrival Time: 0:00 Height (in.): 61.81 BSA: 1.86 (m2) Height (cm.): 157 BMI: 34.89 (kg/m2) Weight (lbs.): 189.6 Weight (kg.): 86 Procedure Procedure Types Cath Procedure Diagnostic Procedure Sedation Charges Moderate Sedation up to 15 minutes PCI Procedure Coronary Stent Coronary Stent Initial Hemochron ACT Test Procedure Description Procedure Date Procedure Date: 05/19/2020 Procedure Start Time: 9:54 Procedure End Time: 10:17 Procedure Staff Name Function Wade Rincon MD Performing Physician Ophelia Becker RT Monitor Erick Qiu RN Nurse Pema Bob RT Scrub Procedure Data Cath Procedure Fluoroscopy Diagnostic fluoroscopy Total fluoroscopy Time: 4.7 time: 4.7 min min Diagnostic fluoroscopy Total fluoroscopy dose: 265 dose: 265 mGy mGy Contrast Material Contrast Material Type Amount (ml) Isovue 300 61 Entry Location Entry Primary Successful Side Size Upsize Upsize Entry Closure Succes sful Closure Location (Fr) 1 (Fr) 2 (Fr) Remarks Device Remarks Femoral Right 6 Fr Exoseal artery Short Estimated blood loss: 10 ml Procedure Complications No complications Procedure Medications Medication Administration Route Dosage 0.9% NaCl I.V. 100 ml/hr Oxygen etCO2 Nasal cannula 2 l/min Heparin Flush Bag added to field 2 bags (1000units/500ml NS) Lidocaine 2% added to field 20 Versed I.V. 2 mg Fentanyl I.V. 100 mcg Nitroglycerin IC/IA I.C. 100 mcg Heparin Bolus I.V. 8000 units Nitroglycerin IC/IA I.C. 100 mcg Hemodynamics Rest BSA: 1.86 (m2) O2 Consumption: Estimated: 252.96 (ml/min) O2 Consumption indexed : Estimated:136 (ml/min/m) Pre Cath Intra NCS Post Cath Vital Signs Time Heart Resp SPO2 etCO2 NIBP (mmHg) Rhythm Pain Sedation Rate (ipm) (%) (mmHg) Status Level (bpm) 9:44:27 73 14 96 9.7 152/68(103) NSR 0 (11) 10(A) , No pain 9:48:45 71 12 97 36 131/70(114) NSR 0 (11) 10(A) , No pain 9:53:01 72 10 97 36 135/67(93) NSR 0 (11) 10(A) , No pain 9:57:19 73 13 97 30.7 137/68(98) NSR 0 (11) 9(A) , No pain 10:01:37 72 13 97 34.5 138/64(99) NSR 0 (11) 9(A) , No pain 10:05:53 77 14 97 31.5 151/75(109) NSR 0 (11) 9(A) , No pain 10:10:11 77 14 98 18.7 150/79(107) NSR 0 (11) 9(A) , No pain 10:15:21 81 18 97 33.8 175/92(132) NSR 0 (11) 9(A) , No pain Medications Time Medication Route Dose Verified Delivered Reason Notes Effectiveness by by 9:43:30 0.9% NaCl I.V. 100 Ercik Erick Per physician ml/hr Lazarus Qiu RN RN 9:43:40 Oxygen etCO2 2 Erick Erick for low 02 sats Nasal l/min Lazarus Qiu cannula RN RN 9:43:52 Heparin Flush added 2 Erick Erick used for Bag to bags Lazarus Qiu procedure (1000units/500ml field RN RN NS) 9:44:04 Lidocaine 2% added 20ml Erick Erick for local to vial Lazarus Qiu anesthetic field RN RN 9:52:37 Versed I.V. 2 mg Erick Erick for sedation Lazarus Qiu RN RN 9:52:48 Fentanyl I.V. 100 Erick Erick for sedation mcg Lazarus Qiu RN RN 10:01:32 Nitroglycerin I.C. 100 Erick Wade for IC/IA mcg Lazarus Rincon MD vasodilation RN 10:04:37 Heparin Bolus I.V. 8,000 Erick Erick for units Lazarus Qiu anticoagulation RN RN 10:11:30 Nitroglycerin I.C. 100 Erick Wade for IC/IA mcg Lazarus Rincon MD vasodilation behavioral health director Log Time Note 9:25:57 Informed consent obtained and on chart 9:26:03 Arrival Date: 05/19/2020 12:00:00 AM 9:26:08 Patient Height : 61.81 inches 9:26:13 Patient Weight : 189.6 lbs 9:27:01 Procedure Status PCI. 9:27:05 Erick Qiu RN sent for patient. Start room use. 9:27:09 Time tracking: Regular hours (M-F 7:00 - 5:00) 9:27:17 Plan of Care:Hemodynamics will remain stable., Cardiac rhythm will remain stable., Comfort level will be maintained., Respiratory function will remain adequate., Patient/ family verbilizes understanding of procedure., Procedure tolerated without complication., Recovers from procedure without complications.. 9:30:17 Patient received from Pre/Post Procedure Room to CCL 3 Alert and oriented. Tansferred to table in Supine position. 9:30:19 Warm blankets applied, and kelton hugger turned on for patient comfort. 9:30:20 Correct patient and procedure confirmed by team. 9:31:51 H&P Date Dictated: 05/11/2020 Within 30 days and on chart.. 9:31:52 Pre-procedure instructions explained to patient. 9:31:55 Family in patients room. 9:31:57 Patient NPO since Midnight. 9:32:55 Patient allergic to Other allergyaVELOX, bACTRIM, bENZOCAINE, bIAXIN, CODEINE, DEFLEX, LATEX, PCN 9:32:59 Is the patient allergic to Iodine/contrast media? No. 9:33:05 Was the patient premedicated? Yes 9:33:06 Is patient on blood thinner?Yes 9:37:55 Patient diabetic? No. 9:37:59 ACC The patient was administered the following blood thiners within the last 24 hours: ACCPlavix 9:38:07 Previous problem with sedation/anesthesia? Yes NAUSEA 9:38:10 Snore? Yes 9:38:12 Sleep apnea? No 9:38:17 Airway obstruction? Yes ASTHMA 9:38:22 Dentures? No ? 9:38:28 Patient pain scale 0/10 ?. 9:38:35 IV patent on arrival in left forearm with 0.9% NaCl at [facility]. 9:38:39 Lab results completed and on chart. 9:38:44 Right groin area was prepped with chlora-prep and draped in sterile fashion 9:38:45 Alarms reviewed by R. N. 9:38:46 Sharps counted by scrub and verified by R.N. 9:38:47 Physician paged 9:43:11 Vital chart was started 9:43:30 0.9% NaCl 100 ml/hr I.V. was administered by Erick Qiu RN; Per physician; Verbal order read back and verified. 9:43:40 Oxygen 2 l/min etCO2 Nasal cannula was administered by Erick Qiu RN; for low 02 sats; Verbal order read back and verified. 9:43:52 Heparin Flush Bag (1000units/500ml NS) 2 bags added to field was administered by Erick Qiu RN; used for procedure; Verbal order read back and verified. 9:44:04 Lidocaine 2% 20ml vial added to field was administered by Erick Qiu RN; for local anesthetic; Verbal order read back and verified. 9:51:12 Physician arrived 9:51:15 --------ALL STOP TIME OUT------ 9:51:53 Final Timeout: patient, procedure, and site verified with staff and physician. All members of the team are in agreement. 9:51:58 Right groin site verified by team. 9:52:03 Fire Safety Assessment: A--An alcohol-based skin anteseptic being used preoperatively., C--Open oxygen or nitrous oxide is being used., D--An ESU, laser, or fiber-optic light is being used. 9:52:10 Physical assessment completed. ASA score P 3 - A patient with severe systemic disease as per Wade Rincon MD. 9:52:13 2) 60-89 Mildly reduced kidney function, and other findings (as for stage 1) point to kidney disease. 9:52:17 Maximum allowable contrast dose (3.7 X eGFR X 0.75)180 ml. 9:52:23 Sedation plan: IV Moderate Sedation Medication:Versed, Fentanyl 9:52:37 Versed 2 mg I.V. was administered by Erick Qiu RN; for sedation; Verbal order read back and verified. 9:52:48 Fentanyl 100 mcg I.V. was administered by Erick Qiu RN; for sedation; Verbal order read back and verified. 9:54:23 Procedure started. 9:54:23 Full Disclosure recording started 9:54:43 Local anesthetic to right femoral artery with Lidocaine 2% by Wade Rincon MD.INITIAL ACCESS ONLY 9:54:55 A 6 Fr Short sheath was inserted into the Right Femoral artery 9:57:11 GUIDE 6FR JR 4.0 catheter ([id number]) opened to sterile field. 9:57:27 BMW 300cm [place] 2 J wire ([id number]) opened to sterile field. 9:57:37 INFLATOR Merit BasixCompak (MK2593) opened to sterile field. 9:57:38 TUBING High Pressure Extension Tubing (Sergey) ([id number]) opened to sterile field. 9:57:42 Use device set Femoral Dx 9:57:44 ACIST Syringe (37726) opened to sterile field. 9:57:44 Bag Decanter (2002S) opened to sterile field. 9:57:46 Medline Cath Pack ([id number]) opened to sterile field. 9:57:48 ACIST Hand Control (54249) opened to sterile field. 9:57:48 ACIST Manifold (44195) opened to sterile field. 9:57:50 Tegaderm 4 x 4 (1626W) opened to sterile field. 9:57:55 EMERALD Guide Wire (502-112) opened to sterile field. 9:58:01 SHEATH 6FR [place] (YVW792) opened to sterile field. 9:58:13 6 Fr jr guide catheter was inserted over the wire 9:59:39 BMW wire advanced. 10:01:32 Nitroglycerin IC/IA 100 mcg I.C. was administered by Wade Rincon MD; for vasodilation; Verbal order read back and verified. 10:04:37 Heparin Bolus 8,000 units I.V. was administered by Erick Qiu RN; for anticoagulation; Verbal order read back and verified. 10:07:03 Wire advanced across lesion. 10:10:24 Place stent Inflation Number: 1 A IAIN OTW 2.5 x 34 stent ([id number]) was prepped and advanced across the Mid RCA 80. The stent was deployed at 12 FELICITA for 0:22 (min:sec) 0. 10:11:20 Wire removed. 10:11:30 Nitroglycerin IC/IA 100 mcg I.C. was administered by Wade Rincon MD; for vasodilation; Verbal order read back and verified. 10:14:25 Guide catheter removed. 10:14:33 Sheath removed intact; hemostasis achieved with Exoseal to the Right Femoral artery. 10:14:46 EXOSEAL 6Fr (EX600) opened to sterile field. 10:14:50 Procedure ended.(Physican Out) 10:15:29 Fluoroscopy time 04.70 minutes. 10:15:34 Fluoroscopy dose: 265 mGy 10:15:34 Flurop Dose total: 265 10:15:38 Dose Area Product 2183 mGy/cm. 10:15:52 Contrast amount:Isovue 300 61ml. 10:15:55 Maximum allowable dose exceeded? No. 10:15:56 Sharps counted by scrub and verified by R.N. 10:15:57 Insertion/operative site no bleeding no hematoma. 10:16:01 Post-op/insertion site Right Femoral artery dressed using a 4 x 4 and Tegaderm. 10:16:02 Post Procedure Pulses reassessed and unchanged 10:16:06 Post-procedure physical assessment completed. ASA score P 3 - A patient with severe systemic disease as per Wade Rincon MD. 10:16:08 Post procedure rhythm: unchanged. 10:16:11 Estimated blood loss: 10 ml 10:16:13 Post procedure instruction explained to patient.Patient verbalizes understanding. 10:16:32 Procedure type changed to Cath procedure, Diagnostic procedure, Sedation Charges, Moderate Sedation up to 15 minutes, PCI procedure, Coronary Stent, Coronary Stent Initial, Hemochron ACT Test 10:16:33 Procedure and supply charges have been captured, reviewed, submitted and are correct. 10:16:55 Procedure Complication : No complications 10:16:58 Vital chart was stopped 10:17:01 [facility] Findings: MVD- PCI performed (see procedure note) 10:17:13 Procedure ended. 10:17:13 Full Disclosure recording stopped 10:17:16 End room use (Document Last) 10:17:34 End room use (Document Last) 10:18:33 End room use (Document Last) 10:19:02 End room use (Document Last) 10:21:14 ACT drawn and resulted at >400 high out of range seconds. (normal therapeutic range 180-240 seconds). Intervention Summary Intervention Notes Time ActionType Lesion and Equipment Action# Pressure Duration Attributes Used 10:10:24 Place stent Mid RCA IAIN OTW 2.5 1 12 00:22 x 34 stent ([id number]) Device Usage Item Name Manufacture Quantity Catalog Hospital Part Current Minim al Lot# / Number Charge Number Stock Stock Serial# Code GUIDE 6FR JR Medtronic 1 [id number] 31915 259771 1 4.0 catheter (NL4TJ52) BMW 300cm Devi 1 [id number] 184322 522507 554507 5 [place] 2 J Vascular wire ([id number]) INFLATOR Merit 1 NS0492 558290 972686 451933 15 Merit Medical BasixCompak (RZ2039) TUBING High Merit 1 [id number] 880312 79541 345330 10 Pressure Medical Extension Tubing (Rincon) ([id number]) ACIST Syringe Acist 1 24165 220587 307440 076808 20 (50036) Medical Systems Inc Bag Decanter Microtek 1 2001S 856117 46953 343484 5 (2001S) Medical Inc. Medline Cath Medline 1 [id number] 101685 58048 812396 5 Pack ([id number]) ACIST Hand Acist 1 58525 372331 134811 724686 5 Control Medical (71941) Systems Inc ACIST Acist 1 04379 122674 809538 692374 5 Manifold Medical (52117) Systems Inc Tegaderm 4 x 3M 1 1626W 605393 546196 142670 5 4 (1626W) EMERALD Guide Cardinal 1 502-455 627771 566879 204167 5 Wire Health (502-455) SHEATH 6FR Terumo 1 WWS458 444288 818694 256179 40 [place] (DSB702) IAIN OTW 2.5 Medtronic 1 [id number] 279753 17572 863076 5 [id number] x 34 stent ([id number]) EXOSEAL 6Fr Cardinal 1 EX600 617921 720003 318399 10 (EX600) Health Signature Audit Sasabe Stage Time Signature Unsigned Intra-Procedure 05/19/2020 Ophelia Becker 10:17:34 AM RT(R) Intra-Procedure 05/19/2020 Ophelia Becker 10:18:33 AM RT(R) Intra-Procedure 05/19/2020 Erick 10:19:02 AM Lazarus MORILLO Intra-Procedure 05/19/2020 Wade Rincon MD 10:21:43 AM Intra-Procedure 05/19/2020 Wade Rincon MD 10:22:[address] [address]
[~2020-05-19 07:26] MED LIST changes: +BAYER CHEWABLE81 MG PO; +ENTRESTO 24 MG1 EACH PO; +PLAVIX75 MG PO
[2020-05-19 08:44] VITALS: BP 185/96; Ht 157.5 cm; Wt 85.6 kg
[2020-05-19 09:02] LABS: HEMATOCRIT 38.6 % (36.0-48.0); HEMOGLOBIN 12.2 g/dL (12-16); MCH 26.3 pg (26.0-34.0); MCHC 31.6 g/dL (31.0-37.0); MCV 83.2 fL (80.0-100.0); MEAN PLATELET VOLUME 9.4 fL (7.4-10.4); PLATELET COUNT 334 10x3/uL (130-400); RBC 4.64 10x6/uL (4.00-5.40); RDW 15.3 % (11.5-14.5); WBC 6.9 10x3/uL (4.8-10.8)
[2020-05-19 09:14] LABS: ANION GAP 12.9 mmol/L (8-16); CALCIUM 9.6 mg/dL (8.5-10.1); CARBON DIOXIDE 27.6 mmol/L (21.0-32.0); CHOL - HDL RATIO 3.6 ratio (2.3-4.1); CREATININE - SERUM 0.9 mg/dL (0.6-1.3); LDL-HDL RATIO 2.2 ratio (1.5-3.5); POTASSIUM - SERUM 4.5 mmol/L (3.5-5.1)
--- NOTE | 2020-05-19 10:30 | NUR ---
PT REC'D TO ROOM 8 VIA STRETCHER FROM [employer]. MONITORS ESTAB. AT BS. SEE RESIDENT SURGEON, ALARMS ON AND C/L IN REACH.
[2020-05-19] MEDS ORDERED: VITAMIN D2000 UNI1 PO (10:31)
--- NOTE | 2020-05-19 10:45 | NUR ---
R GROIN SITE C/D/I, FEMSTOP IN PLACE, NO S/S BLEEDING OR HEMATOMA. PULSES EASILY PALP. VSS. AT BS. [facility]KEON CATH PATENT. ALARMS ON AND C/L IN REACH.
--- NOTE | 2020-05-19 10:55 | NUR ---
DR. RUBIO AT BS TO UPDATE PT AND .
--- NOTE | 2020-05-19 11:15 | NUR ---
R GROIN SITE C/D/I, BEGIN WEANING FEMSTOP - TO 100 MMHG AT THIS TIME. NO S/S BLEEDING OR HEMATOMA. PULSES PALP. VSS. C/L IN REACH.
--- NOTE | 2020-05-19 11:30 | NUR ---
R GROIN SITE C/D/I, FEMSTOP WEANED TO 70 MMHG, NO S/S BLEEDING OR HEMATOMA. PULSES PALP. VSS. PT TAKING ICE CHIPS, DENIES PAIN OR OTHER NEEDS. C/L IN REACH.
--- NOTE | 2020-05-19 12:00 | NUR ---
FEMSTOP WEANED OFF, R GROIN SITE SOFT, NO S/S BLEEDING OR HEMATOMA. PULSES PALP. VSS. ALARMS ON AND C/L IN REACH.
--- NOTE | 2020-05-19 12:30 | NUR ---
R GROIN SITE SOFT, NO S/S BLEEDING OR HEMATOMA. PULSES PALP, R LEG/FOOT WARM. PT DENIES PAIN OR NEEDS. ALARMS ON AND C/L IN REACH.
--- NOTE | 2020-05-19 13:00 | NUR ---
R GROIN SITE SOFT, NO S/S BLEEDING OR HEMATOMA. PULSES PALP. VSS. C/L IN REACH.
--- NOTE | 2020-05-19 13:30 | NUR ---
R GROIN SITE SOFT, NO S/S BLEEDING OR HEMATOMA. HOB ELEVATED AND PT GIVEN WATER AND JELLO PER REQUEST.
--- NOTE | 2020-05-19 14:00 | NUR ---
MCKEON CATH D/C'D INTACT. LANCE-CARE PROVIDED. R GROIN SITE SOFT, NO S/S BLEEDING OR HEMATOMA. VSS. C/L IN REACH.
[2020-05-19 14:19] LABS: LYMPHOCYTES 10 % (15-50); MONOCYTES 2 % (2-11); NEUTROPHILS 87 % (40-80); PLATELET ESTIMATE NORMAL
--- NOTE | 2020-05-19 14:23 | NUR ---
ALL DISCHARGE TEACHING COMPLETE - INCLUDING RESTRITIONS, MEDS AND F/U APPT. BOTH PT AND VERBALIZE UNDERSTANDING.
--- NOTE | 2020-05-19 14:29 | NUR ---
PIV D/C'D INTACT, DSG APPLIED. PT ALLOWED UP TO GET DRESSED AND GO TO BR INDEPENDENTLY.
--- NOTE | 2020-05-19 14:35 | NUR ---
PT D/C'D VIA WC TO PRIVATE VEHICLE WITH ALL PAPERWORK AND BELONGINGS.
== END 2020-05-19 14:35 | disposition home or self-care (01) ==
LOC: D.CATH 07:26
PROVIDERS: ATTEND Internal Medicine Cardiovascular Disease
DX: I25.119 Atherosclerotic heart disease of native coronary artery with unspecified angina pectoris (principal); R94.39 Abnormal result of other cardiovascular function study; I10 Essential (primary) hypertension; K21.9 Gastro-esophageal reflux disease without esophagitis; Z88.8 Allergy status to other drugs, medicaments and biological substances; R06.00 Dyspnea, unspecified; Z82.49 Family history of ischemic heart disease and other diseases of the circulatory system; I45.10 Unspecified right bundle-branch block

== ENCOUNTER → 2020-12-05 17:59 | Outpatient (CLI) | payer MEDICARE, BC ==
[~2020-12-05 17:59] MED LIST changes: +VITAMIN D2000 UNI1 PO
[2020-12-05 18:36] LABS: CHOL - HDL RATIO 2.9 ratio (2.3-4.1); LDL-HDL RATIO 1.2 ratio (1.5-3.5)
== END | disposition home or self-care (01) ==
LOC: D.LABREF 17:59
PROVIDERS: Internal Medicine Cardiovascular Disease
DX: I25.10 Atherosclerotic heart disease of native coronary artery without angina pectoris (principal); E78.5 Hyperlipidemia, unspecified

== ENCOUNTER 2020-12-09 05:00 | Day surgery (SDC) | payer MEDICARE, BC ==
[2020-12-08 12:36] LABS: BASOPHILS 0.3 % (0-2); EOSINOPHILS 6.4 % (0-7); HEMATOCRIT 36.7 % (36.0-48.0); HEMOGLOBIN 11.3 g/dL (12-16); IMMATURE GRANULOCYTES 0.2 % (0-5); LYMPHOCYTES 14.2 % (15-50); MCH 25.7 pg (26.0-34.0); MCHC 30.8 g/dL (31.0-37.0); MCV 83.4 fL (80.0-100.0); MEAN PLATELET VOLUME 9.8 fL (7.4-10.4); MONOCYTES 12.1 % (2-11); NEUTROPHIL ABS# 6.12 10x3/uL (1.56-6.13); NEUTROPHILS 66.8 % (40-80); PLATELET COUNT 309 10x3/uL (130-400); RDW 14.3 % (11.5-14.5); WBC 9.2 10x3/uL (4.8-10.8)
[2020-12-08 12:55] LABS: CALCIUM 8.9 mg/dL (8.5-10.1); CREATININE - SERUM 0.8 mg/dL (0.6-1.3)
[~2020-12-09] VITALS: Ht 157.5 cm; Wt 89.5 kg
--- NOTE | ~2020-12-09 | OP ---
PATIENT NAME: SUSAN LEE MEDICAL RECORD: [id number] :46 LOCATION:[facility] ADMISSION DATE: SURGEON: NAVYA GEORGES MD DATE OF OPERATION: 12/09/2020 PREOPERATIVE DIAGNOSES: Lumbar spinal stenosis and foraminal stenosis at L4-L5 and L5-S1 on the right. POSTOPERATIVE DIAGNOSES: Lumbar spinal stenosis and foraminal stenosis at L4-L5 and L5-S1 on the right. PROCEDURE: Lumbar laminectomy, medial facetectomy, and foraminotomy L4-L5 and L5-S1 on the right. SURGEON: Navya Georges MD DESCRIPTION TECHNIQUE: After induction of general endotracheal anesthesia, the patient was rolled prone on a Cooper frame. Lumbar spine was prepped and draped in usual sterile fashion. Fluoroscopic x-ray and spinal needle localized the L4-5 interspace on the right side. A stab incision was created with 11 blade, series of dilators were used to advance a METRx retractor to the L4-L5 interspace on the right side. Level was confirmed with fluoroscopic x-ray. A Midas Azeem drill and microscope was used to perform a laminectomy, medial facetectomy, and foraminotomy at L4-L5 on the right as well as L5-S1 on the right. Hypertrophied ligamentum flavum was removed with Cloward rongeurs. Following this, the L5 and S1 nerve roots were decompressed as well. Meticulous hemostasis was maintained throughout the wound. The wound was irrigated with copious amounts of Ancef irrigant solution. The retractor was removed. The fascia was closed with 2-0 Vicryl suture. Subdermal layer was closed with 3-0 Vicryl sutures. Skin was closed with lilia. A sterile dressing was applied to the wound. The patient was awakened in good condition and taken to recovery. All counts were reported as correct. Estimated blood loss was minimal. 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
[~2020-12-09 05:00] MED LIST changes: -CATAPRES0.2 MG PO; +CLONIDINE HCL0.2 MG PO; +ERGOCALCIF50000 UNIT PO
[2020-12-09 06:17] VITALS: BP 162/70; Ht 157.5 cm; Wt 89.5 kg
--- NOTE | 2020-12-09 15:44 | NUR ---
1350 IV DC'D. CATHETER TIP INTACT. NO BLEEDING AT SITE AFTER HOLDING PRESSURE. COBAN DRESSING APPLIED. 1422 PT HAS MADE MORE TRIPS TO BR TO VOID WHILE GETTING DRESSED TO GO HOME. DISCHARGE INSTRUCTIONS REVIEWED WITH PT AND HER . BOTH VOICE UNDERSTANDING OF INSTRUCTIONS.
== END 2020-12-09 14:22 | disposition home or self-care (01) ==
LOC: D.OPS 05:00
PROVIDERS: Anesthesiology; ATTEND Neurological Surgery
DX: M48.061 Spinal stenosis, lumbar region without neurogenic claudication (principal); M48.07 Spinal stenosis, lumbosacral region; M54.16 Radiculopathy, lumbar region; M54.5 Low back pain; I10 Essential (primary) hypertension; J45.909 Unspecified asthma, uncomplicated; E78.5 Hyperlipidemia, unspecified